=== PATIENT | male | born 2005 | race Caucasian/White ===

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

== ENCOUNTER 2024-11-17 18:43 | Emergency (ER) | payer OTHER, SELFPAY ==
[2024-11-17 18:48] VITALS: BP 133/85; PULSE 90; RESP 18; TEMP 36.7; O2SAT 98; BMI 17.7
[2024-11-17 19:18] LABS: Add Manual Diff / Slide Review NO; Basophils Absolute Auto 100 /uL (0-100); Basophils Percent Auto 1.2 % (0-2); Eosinophils Absolute Auto 0 /uL (0-450); Eosinophils Percent Auto 0.3 % (2-4); Hematocrit 49.3 % (41-53); Hemoglobin 16.7 g/dL (13.5-17.5); Lymphocytes Absolute Auto 900 /uL (1100-4500); Lymphocytes Percent Auto 18.5 % (25-40); Mean Corpuscular HGB Conc 33.9 % (30-36); Mean Corpuscular Hemoglobin 29.7 PG (26-34); Mean Corpuscular Volume 87.5 fL (80-100); Monocytes Absolute Auto 800 /uL (0-900); Monocytes Percent Auto 16.1 % (3-14); Neutrophils Absolute Auto 3000 /uL (1500-7000); Neutrophils Percent Auto 63.9 % (50-75); Platelet Count 203 X10^3/uL (150-400); Red Blood Cell Count 5.64 X10^6/uL (4.5-5.9); Red Cell Distribution Width 14.3 % (11.6-14.8); White Blood Cell Count 4.7 X10^3/uL (4.5-11.0)
[2024-11-17 19:22] LABS: Appearance Urine UA CLEAR; Bilirubin Urine UA 1+ (NEGATIVE); Glucose Urine UA NEGATIVE (Negative); Ketones Urine UA 3+ (NEGATIVE); Leukocyte Esterase Urine UA NEGATIVE (NEGATIVE); Nitrite Urine UA NEGATIVE (Negative); Occult Blood Urine UA NEGATIVE (Negative); Protein Urine UA TRACE (Negative); Specific Gravity Urine UA >=1.030 (1.000-1.035); Urobilinogen Urine UA 0.2 E.U./dL (0.2)
[2024-11-17 19:39] LABS: Bacteria Urine None Seen; Mucus Urine 1+ (Negative); RBC Urine None Seen (0-5/HPF); Squamous Epithelial Cell Urine 0-1 /HPF (0-5/HPF); Urine Volume 10mL (spun); WBC Urine None Seen (0-5/HPF)
[2024-11-17 19:39] LABS: Alanine Aminotransferase 32 IU/L (<50); Albumin 5.5 g/dL (3.5-5.0); Albumin Globulin Ratio 1.3 (1.0-2.8); Alkaline Phosphatase 107 U/L (38-126); Aspartate Aminotransferase 47 IU/L (17-59); BUN Creatinine Ratio 11.8 (6-22); Bilirubin Total 0.8 mg/dL (0.2-1.3); Blood Urea Nitrogen 12 mg/dL (9-20); Calcium 10.2 mg/dL (8.4-10.2); Carbon Dioxide 21 mmol/L (22-32); Chloride 101 mmol/L (98-107); Estimated Glomerular Filt Rate > 60 mL/min (>60); Globulin 4.1 g/dL (1.7-4.1); Glucose 80 mg/dL (70-100); HEMOLYSIS < 15 (0-50); Lipase 42 U/L (23-300); Potassium 3.6 mmol/L (3.4-5.1); Sodium 140 mmol/L (137-145); Total Protein 9.6 g/dL (6.3-8.2)
[2024-11-17 19:41] LABS: Color Urine UA Yellow; Ictotest Urine Negative (Negative)
[2024-11-17 21:53] VITALS: BP 141/80; PULSE 71; O2SAT 97
[2024-11-17 22:00] VITALS: PULSE 73; O2SAT 98
--- NOTE | 2024-11-17 22:01 | DI.CT.S_ITS ---
PROCEDURE: CT ABDOMEN PELVIS W CON INDICATIONS: pain TECHNIQUE: After the administration of intravenous contrast, axial sections acquired from the lung bases to the pubic symphysis. Coronal and sagittal reformats were performed. For radiation dose reduction, the following was used: automated exposure control, adjustment of mA and/or kV according to patient size. COMPARISON: None. FINDINGS: Image quality: Diagnostic. Lower Chest: No significant findings. ABDOMEN: Liver: No solid mass. Gallbladder: No wall thickening or calcified stones. Biliary ducts: No biliary dilation. Pancreas: Normal size and morphology without visible ductal dilatation or inflammation. Spleen: Size is within normal limits. Adrenal Glands: No adrenal nodules. Kidneys and Ureters: Symmetric enhancement. No nephrolithiasis or hydronephrosis. No visible mass or cyst requiring follow up. No hydroureter. Stomach and Bowel: Partially decompressed stomach. Several small bowel loops partially filled with fluid demonstrate mild mucosal hyperemia. No suspicious bowel wall thickening or luminal distention. The appendix was not seen. Normal colon without wall thickening. Peritoneum: No abnormal intraperitoneal fluid. No free air. Ventral Wall: No significant ventral hernia. Abdominal Nodes: No retroperitoneal or mesenteric adenopathy by size criteria. Vessels: The abdominal aorta, IVC, and portal vein are of normal caliber. PELVIS: Pelvic Organs: Unremarkable. Bladder: No bladder wall thickening, accounting for underdistention. Pelvic Nodes: No enlarged lymph nodes. Miscellaneous: No inguinal hernias are seen. Bones: No aggressive osseous abnormality. IMPRESSION: Mild small bowel mucosal hyperemia may indicate enteritis or gastroenteritis. No other abnormalities in the abdomen or pelvis. Dictated by: Johana Hamm M.D. on 11/18/2024 at 0:36 Approved by: Johana Hamm M.D. on 11/18/2024 at 0:41
--- NOTE | 2024-11-17 22:10 | ED_ITS ---
HPI - Abdominal Pain General Chief Complaint: Abdominal Pain Stated Complaint: Possible kidney infection or appendicitis Time Seen by Provider: 11/17/24 22:10 History of Present Illness HPI narrative: 19-year-old male without any significant past medical history presents to the emergency department from home for evaluation abdominal pain. He states that he has been having right lower quadrant abdominal pain intermittent in nature for the past 2 years, states that he is worsened over the past 2 days, states it is associated with some nausea but nothing making it specifically better or worse. He denies any other symptoms at this time. Related Data Home Medications Medication Instructions Recorded Confirmed No Known Home Medications 11/17/24 11/17/24 Allergies Allergy/AdvReac Type Severity Reaction Status Date / Time No Known Drug Allergies Allergy Verified 11/12/23 17:38 Review of Systems Review of Systems Narrative: General: Denies fever, chills, weight loss HEENT: Denies headache, eye drainage, eye irritation, head trauma, sore throat, voice change Cardiovascular: Denies any chest pain, palpitations, tachycardia Respiratory: Denies any shortness of breath, cough, wheeze, stridor GI/: Positive abdominal pain, nausea, denies vomiting, diarrhea, bright red blood per rectum, melanotic stools, urinary frequency, urinary retention, dysuria, hematuria MSK: Denies any joint pain, muscle pains, swelling Skin: Denies any rashes, lesions, discoloration Neuro: Denies any headache, lightheadedness, dizziness, fainting, weakness Psych: Denies SI/HI Patient History Social History Smoking Status: Current every day smoker Smoking Status: Current every day smoker tobacco type: cigarettes and vaping Exam Narrative Exam Narrative: General: Cooperative, well-developed, not in acute distress HEENT: Normocephalic, atraumatic, PERRLA, normal sclera, eyelids normal Neck: Active full range of motion, atraumatic Chest: Normal to inspection, negative crepitus, no overlying erythema ecchymosis Respiratory: Normal respiratory effort, not in acute respiratory distress, clear to auscultation bilaterally negative cough, wheeze, tachypnea, rhonchi, rales Cardiology: Regular rate rhythm negative gallop, murmur, rubs GI/: Mild tenderness to palpation lower abdomen right lower quadrant worse than left, soft, non rigid, normal to inspection, exam deferred MSK: Full active range of motion in all 4 extremities, atraumatic, no tenderness to palpation of any bony prominences Skin: No rashes or lesions noted Neuro: Alert awake oriented x3, moves all 4 extremities spontaneously, cranial nerves intact, able to answer all questions appropriately follows commands appropriately Psych: Cooperative, negative suicidal or homicidal ideations Initial Vital Signs Initial Vital Signs: Vital Signs Temperature 98.1 F 11/17/24 18:48 Pulse Rate 90 11/17/24 18:48 Respiratory Rate 18 11/17/24 18:48 Blood Pressure 133/85 11/17/24 18:48 Pulse Oximetry 98 11/17/24 18:48 Oxygen Delivery Method Room Air 11/17/24 18:48 Course Orders Ordered: ED Orders 11/17/24 19:00 Ictotest Urine Stat Urinalysis and Microscopic Stat 11/17/24 19:05 Complete Blood Count AUTO DIFF Stat Comprehensive Metabolic Panel Stat Lipase Stat 11/17/24 22:01 CT abdomen pelvis w con Stat Ondansetron HCl (Ondansetron 4 Mg/2 Ml Inj) 4 mg IV NOW PRN PRN Reason: Nausea And Vomiting Ondansetron HCl (Ondansetron 4 Mg Odt) 4 mg PO NOW PRN PRN Reason: Nausea And Vomiting Discontinued Medications Sodium Chloride (Normal Saline 0.9%) 1,000 mls @ 1,000 mls/hr IV BOLUS ONE Stop: 11/17/24 23:18 Last Infusion: 11/17/24 23:40 Dose: Infused Documented By: Admin: 11/17/24 22:49 Dose: 1,000 mls/hr Documented By: THAD Ketorolac Tromethamine (Ketorolac 30 Mg/Ml Vial) 30 mg IV NOW ONE Stop: 11/17/24 22:20 Last Admin: 11/17/24 22:49 Dose: 30 mg Documented By: THAD Ondansetron HCl (Ondansetron 4 Mg/2 Ml Inj) 4 mg IV NOW ONE Stop: 11/17/24 22:20 Last Admin: 11/17/24 22:49 Dose: 4 mg Documented By: THAD Vital Signs Vital signs: Vital Signs - 8 hr 11/17/24 18:48 11/17/24 21:53 11/17/24 21:53 Temperature 98.1 F Pulse Rate 90 71 Respiratory Rate 18 Blood Pressure 133/85 141/80 H Pulse Oximetry 98 97 Oxygen Delivery Method Room Air 11/17/24 22:00 11/17/24 22:30 11/17/24 23:00 Temperature Pulse Rate 73 71 81 Respiratory Rate Blood Pressure Pulse Oximetry 98 98 99 Oxygen Delivery Method 11/17/24 23:30 Temperature Pulse Rate 89 Respiratory Rate Blood Pressure Pulse Oximetry 99 Oxygen Delivery Method MDM - Abdominal Pain Differential Diagnosis Differential diagnosis: Likely abdominal pain, acute appendicitis and other (Urinary tract infection, electrolyte abnormality) Lab Data 11/17/24 19:05 11/17/24 19:05 Labs: Lab Results 11/17/24 11/17/24 Range/Units 19:00 19:05 WBC 4.7 (4.5-11.0) X10^3/uL RBC 5.64 (4.5-5.9) X10^6/uL Hgb 16.7 (13.5-17.5) g/dL Hct 49.3 (41-53) % MCV 87.5 (80-100) fL MCH 29.7 (26-34) PG MCHC 33.9 (30-36) % RDW 14.3 (11.6-14.8) % Plt Count 203 (150-400) X10^3/uL Neut % (Auto) 63.9 (50-75) % Lymph % (Auto) 18.5 L (25-40) % [place] % (Auto) 16.1 H (3-14) % Eos % (Auto) 0.3 L (2-4) % Baso % (Auto) 1.2 (0-2) % Neut # (Auto) 3000 (7986-8135) /uL Lymph # (Auto) 900 L (9809-7404) /uL [place] # (Auto) 800 (0-900) /uL Eos # (Auto) 0 (0-450) /uL Baso # (Auto) 100 (0-100) /uL Sodium 140 (137-145) mmol/L Potassium 3.6 (3.4-5.1) mmol/L Chloride 101 (98-107) mmol/L Carbon Dioxide 21 L (22-32) mmol/L BUN 12 (9-20) mg/dL Creatinine 1.02 (0.66-1.25) mg/dL Estimated GFR > 60 (>60) mL/min BUN/Creatinine Ratio 11.8 (6-22) Glucose 80 (70-100) mg/dL Calcium 10.2 (8.4-10.2) mg/dL Total Bilirubin 0.8 (0.2-1.3) mg/dL AST 47 (17-59) IU/L ALT 32 (<50) IU/L Alkaline Phosphatase 107 (38-126) U/L Total Protein 9.6 H (6.3-8.2) g/dL Albumin 5.5 H (3.5-5.0) g/dL Globulin 4.1 (1.7-4.1) g/dL Albumin/Globulin Ratio 1.3 (1.0-2.8) Lipase 42 (23-300) U/L Urine Color Yellow Urine Appearance Clear Urine pH 6.0 (4.5-8.0) Ur Specific [place] >=1.030 H (1.000-1.035) Urine Protein Trace H (Negative) Urine Glucose (UA) Negative (Negative) g/dL Urine Ketones 3+ H (NEGATIVE) Urine Occult Blood Negative (Negative) Urine Nitrate Negative (Negative) Urine Bilirubin 1+ H (NEGATIVE) Ur Bilirubin Confirm Negative (Negative) Urine Urobilinogen 0.2 (0.2) E.U./dL Ur Leukocyte Esterase Negative (NEGATIVE) Urine RBC None seen (0-5/HPF) Urine WBC None seen (0-5/HPF) Ur Squamous Epith Cells 0-1 /hpf (0-5/HPF) Urine Bacteria None seen (None) Urine Mucus 1+ H (Negative) Vol Urine Centrifuged 10ml (spun) Point of care testing: Urine Dip Bedside Urine Glucose Negative Bedside Urine Bilirubin - Negative Bedside Urine Ketone +++ 80 Urine Specific [place] 1.025 Bedside Urine Occult Blood - Negative Bedside Urine pH 6.0 Bedside Urine Protein + 30 Bedside Urine Urobilinogen - Negative Bedside Urine Nitrite - Negative Bedside Urine Leukocytes - Negative Esterase Imaging Data CT scan - abdomen/pelvis: Radiologist's Impression: [address] [address] [address] Scan Report Signed Patient: Anthony Salmon MR#: [id number] : 2005 Acct:[id number] Age/Sex: 19 / M Date of Service: 11/17/24 Loc: ED Accession Number: [id number] Procedure: CT abdomen pelvis w con Ordering Provider: Sonny Jackson D.O. PROCEDURE: CT ABDOMEN PELVIS W CON INDICATIONS: pain TECHNIQUE: After the administration of intravenous contrast, axial sections acquired from the lung bases to the pubic symphysis. Coronal and sagittal reformats were performed. For radiation dose reduction, the following was used: automated exposure control, adjustment of mA and/or kV according to patient size. COMPARISON: None. FINDINGS: Image quality: Diagnostic. Lower Chest: No significant findings. ABDOMEN: Liver: No solid mass. Gallbladder: No wall thickening or calcified stones. Biliary ducts: No biliary dilation. Pancreas: Normal size and morphology without visible ductal dilatation or inflammation. Spleen: Size is within normal limits. Adrenal Glands: No adrenal nodules. Kidneys and Ureters: Symmetric enhancement. No nephrolithiasis or hydronephrosis. No visible mass or cyst requiring follow up. No hydroureter. Stomach and Bowel: Partially decompressed stomach. Several small bowel loops partially filled with fluid demonstrate mild mucosal hyperemia. No suspicious bowel wall thickening or luminal distention. The appendix was not seen. Normal colon without wall thickening. Peritoneum: No abnormal intraperitoneal fluid. No free air. Ventral Wall: No significant ventral hernia. Abdominal Nodes: No retroperitoneal or mesenteric adenopathy by size criteria. Vessels: The abdominal aorta, IVC, and portal vein are of normal caliber. PELVIS: Pelvic Organs: Unremarkable. Bladder: No bladder wall thickening, accounting for underdistention. Pelvic Nodes: No enlarged lymph nodes. Miscellaneous: No inguinal hernias are seen. Bones: No aggressive osseous abnormality. IMPRESSION: Mild small bowel mucosal hyperemia may indicate enteritis or gastroenteritis. No other abnormalities in the abdomen or pelvis. MDM Narrative Medical decision making narrative: 19-year-old male without any significant past medical history presenting for right lower quadrant abdominal pain, states it has been ongoing intermittent for the past 2 years however worsening over the past 2 days does associated with some nausea but nothing making it better or worse. Patient had urinalysis performed here without any acute signs of urine infection, lab work unremarkable, did obtain CT scan of his abdomen/pelvis which showed enteritis/gastroenteritis otherwise no other acute findings. Patient was instructed to follow up with primary care and Gastroenterology in outpatient setting he verbalized understanding of this and agrees to being discharged home with outpatient follow up. Discharge Plan Departure Patient Disposition: Home Clinical Impression: Enteritis Instructions: DI for Viral Gastroenteritis -- Adult Activity Restrictions/Additional Instructions: Please follow up with Gastroenterology and primary care in outpatient setting Please read the discharge instructions sheet carefully and bring all papers to all doctor follow-up visits, as it may contain information that your doctor may want to see. Disease processes change and evolve, if your symptoms worsen or if you develop any new symptoms that are concerning to you please return for evaluation. Your evaluation today does not show any evidence of any life- threatening/serious illnesses requiring admission to the hospital or surgery. Please follow-up with your doctor for re-evaluation in approximately 1 day. Seek immediate medical attention for any worrisome symptoms. *If you do not have a primary care provider please contact the [facility] Resource line at [phone]. They will ask some questions about your medical history and help get you set up with a doctor in the community. Prescriptions: No Action No Known Home Medications Referrals: Lakhwinder Cabezas MD [Non-Staff] - Miscellaneous,MD Oj [Primary Care Provider] - Stand Alone Forms: Patient Portal/API/Survey
[2024-11-17 22:30] VITALS: PULSE 71; O2SAT 98
[2024-11-17] MEDS: KETOROLAC 30 MG/ML VIAL IV (22:49)
[2024-11-17] MEDS: ONDANSETRON 4 MG/2 ML INJ IV (22:49)
[2024-11-17] MEDS: SODIUM CHLORIDE 0.9% 1,000 ML 1000 ML IV (22:49)
[2024-11-17 23:00] VITALS: PULSE 81; O2SAT 99
[2024-11-17 23:30] VITALS: PULSE 89; O2SAT 99
[2024-11-18] VITALS: PULSE 77; O2SAT 97
[2024-11-18 00:30] VITALS: PULSE 75; O2SAT 98
[2024-11-18 01:00] VITALS: PULSE 78; O2SAT 98
[2024-11-18 01:02] VITALS: BP 108/73; PULSE 71; O2SAT 99
== END 2024-11-18 01:10 | disposition home or self-care (01) ==
PROVIDERS: Emergency Provider Student in an Organized Health Care Education/Training Program
DX: K52.9 Noninfective gastroenteritis and colitis, unspecified (principal)
CPT/HCPCS: 74177; 80053; 81001; 81003; 83690; 85025; 96361; 96374; 96375; 99283; 99284; J1885; J2405; Q9967

== ENCOUNTER 2025-03-08 19:37 | Emergency (ER) | payer OTHER, SELFPAY ==
[2025-03-08 20:26] VITALS: BP 135/73; PULSE 99; RESP 15; TEMP 37.1; O2SAT 99; BMI 19.2
[2025-03-08] MEDS: KETOROLAC 30 MG/ML VIAL 15 MG IV (21:03)
[2025-03-08] MEDS: cefTRIAXone 2,000 MG in SODIUM CHLORIDE 0.9% 100 ML 200 MG IV (21:04)
[2025-03-08 21:07] LABS: Add Manual Diff / Slide Review NO; Hematocrit 45.6 % (41-53); Hemoglobin 15.3 g/dL (13.5-17.5); Lymphocytes Absolute Auto 2200 /uL (1100-4500); Mean Corpuscular HGB Conc 33.4 % (30-36); Mean Corpuscular Hemoglobin 29.3 PG (26-34); Mean Corpuscular Volume 87.6 fL (80-100); Platelet Count 286 X10^3/uL (150-400)
[2025-03-08] MEDS: OXYCODONE/ACETAMINOPHEN 5/325 TABLET 1 TAB PO (21:11)
[2025-03-08 21:13] LABS: Alanine Aminotransferase 17 IU/L (<50); Albumin 5.3 g/dL (3.5-5.0); Albumin Globulin Ratio 1.5 (1.0-2.8); Alkaline Phosphatase 84 U/L (38-126); Blood Urea Nitrogen 10 mg/dL (9-20); Calcium 9.9 mg/dL (8.4-10.2); Carbon Dioxide 25 mmol/L (22-32); Chloride 100 mmol/L (98-107); Estimated Glomerular Filt Rate > 60 mL/min (>60); Globulin 3.6 g/dL (1.7-4.1); Glucose 93 mg/dL (70-99); HEMOLYSIS 19 (0-50); Potassium 3.7 mmol/L (3.4-5.1); Sodium 139 mmol/L (137-145); Total Protein 8.9 g/dL (6.3-8.2)
[2025-03-08 21:30] VITALS: BP 124/70; PULSE 89; RESP 16; O2SAT 98
[2025-03-08 22:00] VITALS: BP 121/79; PULSE 77; RESP 16; O2SAT 98
--- NOTE | 2025-03-08 22:29 | ED.ANIMALBIT ---
HPI - Animal Bite General Chief Complaint: Animal Bite Stated Complaint: animal bite-dog, swollen and [id number] Time Seen by Provider: 03/08/25 20:42 Source: patient Mode of arrival: Ambulatory History of Present Illness HPI narrative: Otherwise healthy 19-year-old young man who was bit by his dog left thenar eminence approximately 24 hours ago. Noticing increasing redness swelling and over the last couple of hours is having some lymphangitic streaking. No fevers or chills no nausea or vomiting. The dog is known to him. Related Data Previous Rx's ?Medication ?Instructions ?Recorded amoxicillin 875 mg-potassium 1 tab PO BID #20 tabs 03/08/25 clavulanate 125 mg tablet Allergies Allergy/AdvReac Type Severity Reaction Status Date / Time No Known Drug Allergies Allergy Verified 03/08/25 20:23 Review of Systems Review of Systems Narrative: Pertinent positive and negative findings as per HPI Patient History tobacco type: cigarettes and vaping Exam Initial Vital Signs Initial Vital Signs: Vital Signs Temperature 98.8 F 03/08/25 20:26 Pulse Rate 99 H 03/08/25 20:26 Respiratory Rate 15 03/08/25 20:26 Blood Pressure 135/73 03/08/25 20:26 Pulse Oximetry 99 03/08/25 20:26 Oxygen Delivery Method Room Air 03/08/25 20:26 General: Alert appropriate in no acute distress Respiratory: Able to speak in full sentences, no obvious respiratory distress Skin: No obvious rashes, warm and dry Neurologic: Grossly intact no obvious asymmetries or abnormalities Psych: appropriate insight and affect, cooperative Extremity: Wound at the base of the thumb on the left side with swelling to the thenar eminence and lymphangitic streaking up the ventral surface of the forearm with some mild axillary adenopathy on left side. No obvious draining, fluctuance or organized abscess. Neurovascularly intact in the fingers. Course Orders Ordered: ED Orders 03/08/25 20:53 CBC Auto Diff [Complete Blood Count AUTO DIFF] Stat CMP [Comprehensive Metabolic Panel] Stat Discontinued Medications Ceftriaxone Sodium 2,000 mg/ (Sodium Chloride) 100 mls @ 200 mls/hr IV NOW ONE Stop: 03/08/25 20:57 Last Infusion: 03/08/25 21:38 Dose: Infused Documented By: Admin: 03/08/25 21:04 Dose: 200 mls/hr Documented By: ADITI Ketorolac Tromethamine (Ketorolac 30 Mg/Ml Vial) 15 mg IV NOW ONE Stop: 03/08/25 20:57 Last Admin: 03/08/25 21:03 Dose: 15 mg Documented By: ADITI Oxycodone/Acetaminophen (Oxycodone/Acetaminophen 5/325 Tablet) 1 tab PO NOW ONE Stop: 03/08/25 20:57 Last Admin: 03/08/25 21:11 Dose: 1 tab Documented By: ADITI Vital Signs Vital signs: Vital Signs - 8 hr 03/08/25 20:26 Temperature 98.8 F Pulse Rate 99 H Respiratory Rate 15 Blood Pressure 135/73 Pulse Oximetry 99 Oxygen Delivery Method Room Air MDM - Animal Bite Lab Data 03/08/25 20:53 03/08/25 20:53 Labs: Lab Results 03/08/25 Range/Units 20:53 WBC 18.1 H (4.5-11.0) X10^3/uL RBC 5.21 (4.5-5.9) X10^6/uL Hgb 15.3 (13.5-17.5) g/dL Hct 45.6 (41-53) % MCV 87.6 (80-100) fL MCH 29.3 (26-34) PG MCHC 33.4 (30-36) % RDW 13.5 (11.6-14.8) % Plt Count 286 (150-400) X10^3/uL Neut % (Auto) 82.0 H (50-75) % Lymph % (Auto) 12.3 L (25-40) % [place] % (Auto) 5.1 (3-14) % Eos % (Auto) 0.2 L (2-4) % Baso % (Auto) 0.4 (0-2) % Neut # (Auto) 96634 H (8880-7441) /uL Lymph # (Auto) 2200 (0065-1392) /uL [place] # (Auto) 900 (0-900) /uL Eos # (Auto) 0 (0-450) /uL Baso # (Auto) 100 (0-100) /uL Sodium 139 (137-145) mmol/L Potassium 3.7 (3.4-5.1) mmol/L Chloride 100 (98-107) mmol/L Carbon Dioxide 25 (22-32) mmol/L BUN 10 (9-20) mg/dL Creatinine 0.98 (0.66-1.25) mg/dL Estimated GFR > 60 (>60) mL/min BUN/Creatinine Ratio 10.2 (6-22) Glucose 93 (70-99) mg/dL Calcium 9.9 (8.4-10.2) mg/dL Total Bilirubin 0.8 (0.2-1.3) mg/dL AST 28 (17-59) IU/L ALT 17 (<50) IU/L Alkaline Phosphatase 84 (38-126) U/L Total Protein 8.9 H (6.3-8.2) g/dL Albumin 5.3 H (3.5-5.0) g/dL Globulin 3.6 (1.7-4.1) g/dL Albumin/Globulin Ratio 1.5 (1.0-2.8) MDM Narrative Medical decision making narrative: 19-year-old gentleman bit by a dog left thenar eminence almost 24 hours ago. Increasing swelling and redness and prior to arrival in the Emergency departed noted some lymphangitic streaking. He is not having systemic fevers or body aches. He is able to eat and drink. He has never had similar symptoms. Lab work shows significant leukocytosis at 18,000 with normal chemistries He is given 2 g of IV ceftriaxone along with Toradol in the emergency department. Pain is better controlled and the lymphangitic streaking is already notably improved Discussed the importance of completing complete course of Augmentin, reasons to return, at this point he does not have an abscess does not need to be surgically drained and is safe for discharge home. Discharge Plan Departure Patient Disposition: Home Clinical Impression: Dog bite, Cellulitis Instructions: DI for Dog Bite Activity Restrictions/Additional Instructions: Thank you for coming in today You definitely have an infection from the dog bite, you were given IV antibiotics and need to complete 10 additional days of oral antibiotics, Augmentin. Prescription for this is sent to [facility] in [place]. Using 400 mg of ibuprofen (2 [id number] pills) and 1 Tylenol every 6 hours can be very helpful in controlling pain. For severe pain you can use 400 mg of ibuprofen and 1 Percocet. Keeping your hand elevated above the level of your heart we will help if you are having any throbbing pain. The streaking up your arm is already improving after the dose of IV antibiotics and I find this very encouraging. The pain should continue to improve over the next number of days. If you find that you are getting worse or develop any new symptoms, please feel free to return to the emergency department for further evaluation. Prescriptions: New amoxicillin-pot clavulanate 875-125 mg tablet 1 tab PO BID Qty: 20 0RF Referrals: Miscellaneous,Doctor, [Primary Care Provider, Medical] Stand Alone Forms: Patient Portal/API
[2025-03-08 22:30] VITALS: BP 110/61; PULSE 75; RESP 16; O2SAT 97
[2025-03-08 23:00] VITALS: BP 115/65; PULSE 74; RESP 14; O2SAT 98
[2025-03-08 23:30] VITALS: BP 121/78; PULSE 74; RESP 16; O2SAT 99
[2025-03-09] MEDS: OXYCODONE/ACETAMINOPHEN 5/325 TABLET 1 TAB PO
== END 2025-03-09 00:10 | disposition home or self-care (01) ==
PROVIDERS: Emergency Provider Emergency Medicine
DX: L03.114 Cellulitis of left upper limb (principal); W54.0XXA Bitten by dog, initial encounter
CPT/HCPCS: 36415; 80053; 85025; 96365; 96375; 99284; J0696; J1885

== ENCOUNTER 2025-03-18 18:41 | Emergency (ER) | payer OTHER, SELFPAY ==
[2025-03-18 18:52] VITALS: BP 122/68; PULSE 91; RESP 17; TEMP 36.8; O2SAT 97; BMI 19.8
[2025-03-18 21:03] LABS: Add Manual Diff / Slide Review NO; Hematocrit 43.9 % (41-53); Hemoglobin 15.0 g/dL (13.5-17.5); Lymphocytes Absolute Auto 3100 /uL (1100-4500); Mean Corpuscular HGB Conc 34.2 % (30-36); Mean Corpuscular Hemoglobin 29.8 PG (26-34); Mean Corpuscular Volume 87.1 fL (80-100); Platelet Count 310 X10^3/uL (150-400)
[2025-03-18 21:25] LABS: Lactate (Lactic Acid) 1.4 mmol/L (0.7-2.1)
[2025-03-18 21:27] LABS: Alanine Aminotransferase 15 IU/L (<50); Albumin 5.3 g/dL (3.5-5.0); Albumin Globulin Ratio 1.5 (1.0-2.8); Alkaline Phosphatase 72 U/L (38-126); Blood Urea Nitrogen 14 mg/dL (9-20); Calcium 9.6 mg/dL (8.4-10.2); Carbon Dioxide 25 mmol/L (22-32); Chloride 102 mmol/L (98-107); Estimated Glomerular Filt Rate > 60 mL/min (>60); Globulin 3.5 g/dL (1.7-4.1); Glucose 87 mg/dL (70-99); HEMOLYSIS 16 (0-50); Potassium 4.0 mmol/L (3.4-5.1); Sodium 139 mmol/L (137-145); Total Protein 8.8 g/dL (6.3-8.2)
[2025-03-18 21:40] LABS: Procalcitonin < 0.030 ng/mL (<0.5)
--- NOTE | 2025-03-18 22:15 | PC.NURSE ---
pt states his hand was almost completely healed when his dog hit it with his paw and then it became red and swollen again. base of left thumb is red and swollen with streaking noted, no drainage at present
--- NOTE | 2025-03-18 22:46 | ED.WOUNDLAC ---
HPI - Wound/Laceration General Chief Complaint: Wound/Laceration Stated Complaint: dog bite Time Seen by Provider: 03/18/25 20:01 Source: patient Mode of arrival: Ambulatory History of Present Illness HPI narrative: 19-year-old gentleman seen initially on 03/08 for cellulitis dog bite for which he was discharged on Augmentin finishes last dose today and had bumped into his dog separate from the original dog bite and the swelling at the original dog bite site became more red and painful with mild streaking up the left upper extremity. In fact patient said it swelled up to the size of an apple and had the streaking up the arm initially on the initial dog bite as well but subsided with the antibiotics. He denies any fever chills any restriction in motion of the arm wrist shoulder elbow hand fingers. He has been compliant in taking his antibiotics. Other than what is stated 14 point review of system is negative. Related Data Previous Rx's ?Medication ?Instructions ?Recorded amoxicillin 875 mg-potassium 1 tab PO BID #20 tabs 03/08/25 clavulanate 125 mg tablet amoxicillin 875 mg-potassium 1 tab PO Q12H #20 tabs 03/18/25 clavulanate 125 mg tablet Allergies Allergy/AdvReac Type Severity Reaction Status Date / Time No Known Drug Allergies Allergy Verified 03/18/25 18:54 Review of Systems Review of Systems ROS Unobtainable: All systems reviewed & are unremarkable except as noted in HPI and below Patient History tobacco type: cigarettes and vaping Exam Narrative Exam Narrative: GENERAL: [19] year old patient appears stated age. Well-developed patient, in mild distress. HEAD: Atraumatic. Normocephalic. EYES: Pupils equal round and reactive. Extraocular motions intact. No scleral icterus. No injection or drainage. NECK: Trachea midline. Non tender EXTREMITIES: No edema or joint tenderness. BACK: Nontender without deformity or crepitance. No flank tenderness. NEURO: AOx3. SKIN: Wound at the base of the thumb on the left side with swelling to the thenar eminence and lymphangitic streaking up the ventral surface of the forearm. No obvious draining, fluctuance or organized abscess. Neurovascularly intact in the fingers. Initial Vital Signs Initial Vital Signs: Vital Signs Temperature 98.2 F 03/18/25 18:52 Pulse Rate 91 H 03/18/25 18:52 Respiratory Rate 17 03/18/25 18:52 Blood Pressure 122/68 03/18/25 18:52 Pulse Oximetry 97 03/18/25 18:52 Oxygen Delivery Method Room Air 03/18/25 18:52 Course Orders Ordered: ED Orders 03/18/25 20:49 Blood Culture Stat CBC Auto Diff [Complete Blood Count AUTO DIFF] Stat CMP [Comprehensive Metabolic Panel] Stat CRP [C-Reactive Protein Quant] Stat ESR [Erythrocyte Sedimentation Rate] Stat Lactate (Lactic Acid) Stat Procalcitonin Stat Vital Signs Vital signs: Vital Signs - 8 hr 03/18/25 18:52 Temperature 98.2 F Pulse Rate 91 H Respiratory Rate 17 Blood Pressure 122/68 Pulse Oximetry 97 Oxygen Delivery Method Room Air MDM - Wound/Laceration Lab Data 03/18/25 20:49 03/18/25 20:49 Labs: Lab Results 03/18/25 Range/Units 20:49 WBC 13.5 H (4.5-11.0) X10^3/uL RBC 5.04 (4.5-5.9) X10^6/uL Hgb 15.0 (13.5-17.5) g/dL Hct 43.9 (41-53) % MCV 87.1 (80-100) fL MCH 29.8 (26-34) PG MCHC 34.2 (30-36) % RDW 13.5 (11.6-14.8) % Plt Count 310 (150-400) X10^3/uL Neut % (Auto) 68.6 (50-75) % Lymph % (Auto) 22.7 L (25-40) % [place] % (Auto) 6.9 (3-14) % Eos % (Auto) 0.9 L (2-4) % Baso % (Auto) 0.9 (0-2) % Neut # (Auto) 9200 H (3244-7675) /uL Lymph # (Auto) 3100 (7022-1230) /uL [place] # (Auto) 900 (0-900) /uL Eos # (Auto) 100 (0-450) /uL Baso # (Auto) 100 (0-100) /uL ESR 4 (0-15) MM/HR Sodium 139 (137-145) mmol/L Potassium 4.0 (3.4-5.1) mmol/L Chloride 102 (98-107) mmol/L Carbon Dioxide 25 (22-32) mmol/L BUN 14 (9-20) mg/dL Creatinine 1.14 (0.66-1.25) mg/dL Estimated GFR > 60 (>60) mL/min BUN/Creatinine Ratio 12.3 (6-22) Glucose 87 (70-99) mg/dL Lactate 1.4 (0.7-2.1) mmol/L Calcium 9.6 (8.4-10.2) mg/dL Total Bilirubin 0.6 (0.2-1.3) mg/dL AST 28 (17-59) IU/L ALT 15 (<50) IU/L Alkaline Phosphatase 72 (38-126) U/L C-Reactive Protein < 0.5 (<1.0) mg/dL Total Protein 8.8 H (6.3-8.2) g/dL Albumin 5.3 H (3.5-5.0) g/dL Globulin 3.5 (1.7-4.1) g/dL Albumin/Globulin Ratio 1.5 (1.0-2.8) Procalcitonin < 0.030 (<0.5) ng/mL MDM Narrative Medical decision making narrative: Vital signs, nurse triage note, medication list, previous ER visits, and all imaging studies reviewed. Patient given Rocephin 2 g IV, Toradol, hydrocodone, lactated ringer 1 L bolus. Patient will be discharged on cephalexin and Augmentin and to return with new or worsening. Differential diagnosis cellulitis, abscess, dog Bite, tetanus, rabies. Discharge Plan Departure Patient Disposition: Home Clinical Impression: Dog bite Qualifiers: Encounter type: initial encounter Qualified Code(s): W54.0XXA - Bitten by dog, initial encounter Instructions: DI for Dog Bite Activity Restrictions/Additional Instructions: Return with new or worsening symptoms. Take your medicine as directed. Follow up with PCP 1-2 weeks if no improvement in symptoms. Prescriptions: New amoxicillin-pot clavulanate 875-125 mg tablet 1 tab PO Q12H Qty: 20 0RF No Action amoxicillin-pot clavulanate 875-125 mg tablet 1 tab PO BID Qty: 20 0RF Referrals: Miscellaneous,Doctor [Primary Care Provider, Medical] Stand Alone Forms: Patient Portal/API
[2025-03-18] MEDS: HYDROCODONE/ACET 5/325 TABLET 1 TAB PO (23:01)
[2025-03-18] MEDS: KETOROLAC 30 MG/ML VIAL 15 MG IV (23:01)
[2025-03-18] MEDS: cefTRIAXone 2,000 MG in SODIUM CHLORIDE 0.9% 100 ML 200 MG IV (23:01)
[2025-03-18 23:38] VITALS: BP 120/64; PULSE 88; RESP 16; O2SAT 100
== END 2025-03-18 23:39 | disposition home or self-care (01) ==
PROVIDERS: Emergency Provider Family Medicine
DX: S41.152D Open bite of left upper arm, subsequent encounter (principal); W54.0XXD Bitten by dog, subsequent encounter
CPT/HCPCS: 36415; 80053; 83605; 84145; 85025; 85651; 86140; 87040; 96365; 96375; 99284; J0696; J1885

== ENCOUNTER 2025-07-12 15:25 | Emergency (ER) | payer OTHER, SELFPAY ==
[2025-07-12] VITALS (9 sets, daily range): BP systolic 118–136; BP diastolic 65–84; PULSE 52–89; RESP 14–23; TEMP 36.9; O2SAT 95–100; BMI 16.9
[2025-07-12] MEDS: PANTOPRAZOLE 40 MG VIAL IV (15:45)
[2025-07-12] MEDS: SODIUM CHLORIDE 0.9% 1,000 ML 1000 ML IV ×3 (15:45→18:02)
[2025-07-12] MEDS: ONDANSETRON 4 MG/2 ML INJ IV ×2 (15:45→16:55)
[2025-07-12 15:55] LABS: Add Manual Diff / Slide Review NO; Hematocrit 50.2 % (41-53); Hemoglobin 17.4 g/dL (13.5-17.5); Lymphocytes Absolute Auto 1000 /uL (1100-4500); Mean Corpuscular HGB Conc 34.6 % (30-36); Mean Corpuscular Hemoglobin 29.6 PG (26-34); Mean Corpuscular Volume 85.6 fL (80-100); Platelet Count 291 X10^3/uL (150-400)
[2025-07-12 16:14] LABS: Lactate (Lactic Acid) 1.6 mmol/L (0.7-2.1)
[2025-07-12 16:15] LABS: Alanine Aminotransferase 19 IU/L (<50); Albumin 5.7 g/dL (3.5-5.0); Albumin Globulin Ratio 1.5 (1.0-2.8); Alkaline Phosphatase 63 U/L (38-126); Blood Urea Nitrogen 16 mg/dL (9-20); Calcium 9.9 mg/dL (8.4-10.2); Carbon Dioxide 24 mmol/L (22-32); Chloride 98 mmol/L (98-107); Estimated Glomerular Filt Rate > 60 mL/min (>60); Globulin 3.9 g/dL (1.7-4.1); Glucose 107 mg/dL (70-99); Lipase 38 U/L (23-300); Potassium 3.7 mmol/L (3.4-5.1); Sodium 138 mmol/L (137-145); Total Protein 9.6 g/dL (6.3-8.2)
[2025-07-12 16:16] LABS: HEMOLYSIS 59 (0-50)
--- NOTE | 2025-07-12 16:21 | ED.ABDPAIN ---
HPI - Abdominal Pain <Batsheva Collins DO - Last Filed: 07/13/25 07:05> General Chief Complaint: Abdominal Pain Stated Complaint: N/V X 1 week Time Seen by Provider: 07/12/25 15:30 Source: patient Mode of arrival: Ambulatory History of Present Illness HPI narrative: Patient is a healthy 20-year-old male presenting today with 1 week of nausea vomiting abdominal pain. He has been unable to keep anything down he maybe had a episode of diarrhea prior level she has been vomiting. He feels dizzy lightheaded he has pretty severe epigastric pain. No one else is really sick at home. He does admit to smoking marijuana daily but has never had hyperemesis cannabis syndrome before. Related Data Previous Rx's ?Medication ?Instructions ?Recorded ondansetron 4 mg disintegrating 4 mg PO Q6H PRN nausea and 07/12/25 tablet vomiting #7 tabs Allergies Allergy/AdvReac Type Severity Reaction Status Date / Time No Known Drug Allergies Allergy Verified 07/12/25 15:30 Patient History <Batsheva Collins DO - Last Filed: 07/13/25 07:05> Social History Smoking Status: Former smoker Smoking Status: Former smoker tobacco type: cigarettes and vaping Exam <Batsheva Collins DO - Last Filed: 07/13/25 07:05> Initial Vital Signs Initial Vital Signs: Vital Signs Temperature 98.4 F 07/12/25 15:31 Pulse Rate 67 07/12/25 15:31 Respiratory Rate 14 07/12/25 15:31 Blood Pressure 136/84 07/12/25 15:31 Pulse Oximetry 100 07/12/25 15:31 Oxygen Delivery Method Room Air 07/12/25 15:31 GENERAL: Alert thin 20-year-old male and in no acute distress. HEENT: Head atraumatic,EOMI, pupils reactive, face symmetric, dry mucous membranes CARDIOVASCULAR: Regular rate and rhythm without murmurs, rubs or gallops. RESPIRATORY: Breath sounds equal bilaterally, no wheezes rales or rhonchi. ABDOMEN: Soft, tender epigastric region no guarding no rebound : No CVA tenderness EXTREMITIES: Normal range of motion, no clubbing or edema. Neurovascularly intact NEUROLOGICAL: Alert and oriented x4.Normal gait and speech. Cranial nerves II through XII grossly intact. SKIN: Warm, dry, no laceration, no petechiae, no rashes or lesions. <Salazar Dexter MD - Last Filed: 07/13/25 00:34> Initial Vital Signs Initial Vital Signs: Vital Signs Temperature 98.4 F 07/12/25 15:31 Pulse Rate 67 07/12/25 15:31 Respiratory Rate 14 07/12/25 15:31 Blood Pressure 136/84 07/12/25 15:31 Pulse Oximetry 100 07/12/25 15:31 Oxygen Delivery Method Room Air 07/12/25 15:31 Course <Batsheva Collins DO - Last Filed: 07/13/25 07:05> Orders Ordered: Discontinued Medications Sodium Chloride (Normal Saline 0.9%) 1,000 mls @ 1,000 mls/hr IV BOLUS ONE Stop: 07/12/25 16:33 Last Infusion: 07/12/25 17:17 Dose: Infused Documented By: [facility] Admin: 07/12/25 15:45 Dose: 1,000 mls/hr Documented By: AB Sodium Chloride (Normal Saline 0.9%) 1,000 mls @ 1,000 mls/hr IV BOLUS ONE Stop: 07/12/25 16:33 Last Infusion: 07/12/25 17:17 Dose: Infused Documented By: [facility] Admin: 07/12/25 15:45 Dose: 1,000 mls/hr Documented By: AB Sodium Chloride (Normal Saline 0.9%) 1,000 mls @ 1,000 mls/hr IV BOLUS ONE Stop: 07/12/25 18:49 Last Infusion: 07/12/25 18:46 Dose: Infused Documented By: C Admin: 07/12/25 18:02 Dose: 1,000 mls/hr Documented By: LAWRENCE Ketorolac Tromethamine (Ketorolac 30 Mg/Ml Vial) 15 mg IV NOW ONE Stop: 07/12/25 17:18 Last Admin: 07/12/25 17:24 Dose: 15 mg Documented By: RLPatricia Ondansetron HCl (Ondansetron 4 Mg/2 Ml Inj) 4 mg IV NOW ONE Stop: 07/12/25 15:35 Last Admin: 07/12/25 15:45 Dose: 4 mg Documented By: Ondansetron HCl (Ondansetron 4 Mg/2 Ml Inj) 4 mg IV NOW ONE Stop: 07/12/25 16:48 Last Admin: 07/12/25 16:55 Dose: 4 mg Documented By: THAD Ondansetron HCl (Ondansetron 4 Mg Odt Prepack) 1 bottle MISC DIRECTED ONE Stop: 07/12/25 19:12 Last Admin: 07/12/25 19:21 Dose: 1 bottle Documented By: THAD Pantoprazole Sodium (Pantoprazole 40 Mg Vial) 40 mg IV NOW ONE Stop: 07/12/25 15:35 Last Admin: 07/12/25 15:45 Dose: 40 mg Documented By: Vital Signs Vital signs: Vital Signs - 8 hr 07/12/25 16:30 07/12/25 16:30 07/12/25 17:00 Pulse Rate 52 L Respiratory Rate 22 Blood Pressure 136/83 131/84 Pulse Oximetry 100 07/12/25 17:00 07/12/25 17:30 07/12/25 17:30 Pulse Rate 59 L 77 Respiratory Rate 18 16 Blood Pressure 129/80 Pulse Oximetry 100 100 07/12/25 18:01 07/12/25 18:01 07/12/25 18:30 Pulse Rate 73 89 Respiratory Rate 15 19 Blood Pressure 131/78 Pulse Oximetry 99 100 07/12/25 18:30 07/12/25 19:02 07/12/25 19:21 Pulse Rate 87 Respiratory Rate Blood Pressure 130/73 118/65 Pulse Oximetry 95 07/12/25 19:21 Pulse Rate 83 Respiratory Rate 16 Blood Pressure Pulse Oximetry 98 <Salazar Dexter MD - Last Filed: 07/13/25 00:34> Orders Ordered: Discontinued Medications Sodium Chloride (Normal Saline 0.9%) 1,000 mls @ 1,000 mls/hr IV BOLUS ONE Stop: 07/12/25 16:33 Last Infusion: 07/12/25 17:17 Dose: Infused Documented By: Admin: 07/12/25 15:45 Dose: 1,000 mls/hr Documented By: Sodium Chloride (Normal Saline 0.9%) 1,000 mls @ 1,000 mls/hr IV BOLUS ONE Stop: 07/12/25 16:33 Last Infusion: 07/12/25 17:17 Dose: Infused Documented By: Admin: 07/12/25 15:45 Dose: 1,000 mls/hr Documented By: AB Sodium Chloride (Normal Saline 0.9%) 1,000 mls @ 1,000 mls/hr IV BOLUS ONE Stop: 07/12/25 18:49 Last Infusion: 07/12/25 18:46 Dose: Infused Documented By: Admin: 07/12/25 18:02 Dose: 1,000 mls/hr Documented By: ES Ketorolac Tromethamine (Ketorolac 30 Mg/Ml Vial) 15 mg IV NOW ONE Stop: 07/12/25 17:18 Last Admin: 07/12/25 17:24 Dose: 15 mg Documented By: THAD Ondansetron HCl (Ondansetron 4 Mg/2 Ml Inj) 4 mg IV NOW ONE Stop: 07/12/25 15:35 Last Admin: 07/12/25 15:45 Dose: 4 mg Documented By: AB Ondansetron HCl (Ondansetron 4 Mg/2 Ml Inj) 4 mg IV NOW ONE Stop: 07/12/25 16:48 Last Admin: 07/12/25 16:55 Dose: 4 mg Documented By: THAD Ondansetron HCl (Ondansetron 4 Mg Odt Prepack) 1 bottle MISC DIRECTED ONE Stop: 07/12/25 19:12 Last Admin: 07/12/25 19:21 Dose: 1 bottle Documented By: THAD Pantoprazole Sodium (Pantoprazole 40 Mg Vial) 40 mg IV NOW ONE Stop: 07/12/25 15:35 Last Admin: 07/12/25 15:45 Dose: 40 mg Documented By: AB Vital Signs Vital signs: Vital Signs - 8 hr 07/12/25 16:30 07/12/25 16:30 07/12/25 17:00 Pulse Rate 52 L Respiratory Rate 22 Blood Pressure 136/83 131/84 Pulse Oximetry 100 07/12/25 17:00 07/12/25 17:30 07/12/25 17:30 Pulse Rate 59 L 77 Respiratory Rate 18 16 Blood Pressure 129/80 Pulse Oximetry 100 100 07/12/25 18:01 07/12/25 18:01 07/12/25 18:30 Pulse Rate 73 89 Respiratory Rate 15 19 Blood Pressure 131/78 Pulse Oximetry 99 100 07/12/25 18:30 07/12/25 19:02 07/12/25 19:21 Pulse Rate 87 Respiratory Rate Blood Pressure 130/73 118/65 Pulse Oximetry 95 07/12/25 19:21 Pulse Rate 83 Respiratory Rate 16 Blood Pressure Pulse Oximetry 98 MDM - Abdominal Pain <Batsheva Dennis, DO - Last Filed: 07/13/25 07:05> Lab Data 07/12/25 15:49 07/12/25 15:49 Labs: Lab Results 07/12/25 07/12/25 Range/Units 15:49 17:50 WBC 8.5 (4.5-11.0) X10^3/uL RBC 5.87 (4.5-5.9) X10^6/uL Hgb 17.4 (13.5-17.5) g/dL Hct 50.2 (41-53) % MCV 85.6 (80-100) fL MCH 29.6 (26-34) PG MCHC 34.6 (30-36) % RDW 13.4 (11.6-14.8) % Plt Count 291 (150-400) X10^3/uL Neut % (Auto) 84.2 H (50-75) % Lymph % (Auto) 11.2 L (25-40) % Grady % (Auto) 3.7 (3-14) % Eos % (Auto) 0.4 L (2-4) % Baso % (Auto) 0.5 (0-2) % Neut # (Auto) 7200 H (7417-9298) /uL Lymph # (Auto) 1000 L (4617-3088) /uL Grady # (Auto) 300 (0-900) /uL Eos # (Auto) 0 (0-450) /uL Baso # (Auto) 0 (0-100) /uL Sodium 138 (137-145) mmol/L Potassium 3.7 (3.4-5.1) mmol/L Chloride 98 (98-107) mmol/L Carbon Dioxide 24 (22-32) mmol/L BUN 16 (9-20) mg/dL Creatinine 1.02 (0.66-1.25) mg/dL Estimated GFR > 60 (>60) mL/min BUN/Creatinine Ratio 15.7 (6-22) Glucose 107 H (70-99) mg/dL Lactate 1.6 (0.7-2.1) mmol/L Calcium 9.9 (8.4-10.2) mg/dL Total Bilirubin 1.5 H (0.2-1.3) mg/dL AST 29 (17-59) IU/L ALT 19 (<50) IU/L Alkaline Phosphatase 63 (38-126) U/L Total Protein 9.6 H (6.3-8.2) g/dL Albumin 5.7 H (3.5-5.0) g/dL Globulin 3.9 (1.7-4.1) g/dL Albumin/Globulin Ratio 1.5 (1.0-2.8) Lipase 38 (23-300) U/L Urine RBC None seen (0-5/HPF) Urine WBC 0-1/hpf (0-5/HPF) Ur Squamous Epith Cells None seen (0-5/HPF) Amorphous Sediment 3+ Urine Bacteria Few (2-10) H (None) Ur Culture Indicated? Cult not indicated Vol Urine Centrifuged 10ml (spun) U Opiates 300ng/mL cut Negative (Negative) Ur Oxycodone Screen Negative (Negative) Urine Methadone Screen Negative (Negative) Ur Barbiturates Screen Negative (Negative) U Tricyclic Antidepress Negative (Negative) Ur Phencyclidine Scrn Negative (Negative) Ur Amphetamines Screen Negative (Negative) U Methamphetamines Scrn Negative (Negative) Ur MDMA Scrn (Ecstasy) Negative (Negative) U Benzodiazepines Scrn Negative (Negative) Urine Cocaine Screen Negative (Negative) U Marijuana (THC) Screen Positive H (Negative) Urine pH Normal (Normal) Urine Specific [place] Normal (Normal) Ur Creatinine Normal (Normal) Point of care testing: Urine Dip Bedside Urine Glucose Negative Bedside Urine Bilirubin - Negative Bedside Urine Ketone ++ 40 Urine Specific [place] 1.015 Bedside Urine Occult Blood - Negative Bedside Urine pH 6.5 Bedside Urine Protein +/- 15 Bedside Urine Urobilinogen - Negative Bedside Urine Nitrite - Negative Bedside Urine Leukocytes - Negative Esterase MDM Narrative Medical decision making narrative: Patient healthy 20-year-old male presenting today with 1 week of nausea vomiting. He has pretty severe epigastric pain but abdomen is soft and nondistended. Blood work has been reviewed No leukocytosis no anemia CMP shows no abnormal electrolytes no BLANCA glucose is 107 Bilirubin 1.5 AST ALT within normal limits lipase 30 Lactate 1.6 Patient received 2 L IV fluids Protonix and Zofran now feeling a little bit better. <Salazar Dexter MD - Last Filed: 07/13/25 00:34> Lab Data Labs: Lab Results 07/12/25 07/12/25 Range/Units 15:49 17:50 WBC 8.5 (4.5-11.0) X10^3/uL RBC 5.87 (4.5-5.9) X10^6/uL Hgb 17.4 (13.5-17.5) g/dL Hct 50.2 (41-53) % MCV 85.6 (80-100) fL MCH 29.6 (26-34) PG MCHC 34.6 (30-36) % RDW 13.4 (11.6-14.8) % Plt Count 291 (150-400) X10^3/uL Neut % (Auto) 84.2 H (50-75) % Lymph % (Auto) 11.2 L (25-40) % Grady % (Auto) 3.7 (3-14) % Eos % (Auto) 0.4 L (2-4) % Baso % (Auto) 0.5 (0-2) % Neut # (Auto) 7200 H (1858-4801) /uL Lymph # (Auto) 1000 L (7333-1500) /uL Grady # (Auto) 300 (0-900) /uL Eos # (Auto) 0 (0-450) /uL Baso # (Auto) 0 (0-100) /uL Sodium 138 (137-145) mmol/L Potassium 3.7 (3.4-5.1) mmol/L Chloride 98 (98-107) mmol/L Carbon Dioxide 24 (22-32) mmol/L BUN 16 (9-20) mg/dL Creatinine 1.02 (0.66-1.25) mg/dL Estimated GFR > 60 (>60) mL/min BUN/Creatinine Ratio 15.7 (6-22) Glucose 107 H (70-99) mg/dL Lactate 1.6 (0.7-2.1) mmol/L Calcium 9.9 (8.4-10.2) mg/dL Total Bilirubin 1.5 H (0.2-1.3) mg/dL AST 29 (17-59) IU/L ALT 19 (<50) IU/L Alkaline Phosphatase 63 (38-126) U/L Total Protein 9.6 H (6.3-8.2) g/dL Albumin 5.7 H (3.5-5.0) g/dL Globulin 3.9 (1.7-4.1) g/dL Albumin/Globulin Ratio 1.5 (1.0-2.8) Lipase 38 (23-300) U/L Urine RBC None seen (0-5/HPF) Urine WBC 0-1/hpf (0-5/HPF) Ur Squamous Epith Cells None seen (0-5/HPF) Amorphous Sediment 3+ Urine Bacteria Few (2-10) H (None) Ur Culture Indicated? Cult not indicated Vol Urine Centrifuged 10ml (spun) U Opiates 300ng/mL cut Negative (Negative) Ur Oxycodone Screen Negative (Negative) Urine Methadone Screen Negative (Negative) Ur Barbiturates Screen Negative (Negative) U Tricyclic Antidepress Negative (Negative) Ur Phencyclidine Scrn Negative (Negative) Ur Amphetamines Screen Negative (Negative) U Methamphetamines Scrn Negative (Negative) Ur MDMA Scrn (Ecstasy) Negative (Negative) U Benzodiazepines Scrn Negative (Negative) Urine Cocaine Screen Negative (Negative) U Marijuana (THC) Screen Positive H (Negative) Urine pH Normal (Normal) Urine Specific [place] Normal (Normal) Ur Creatinine Normal (Normal) Point of care testing: Urine Dip Bedside Urine Glucose Negative Bedside Urine Bilirubin - Negative Bedside Urine Ketone ++ 40 Urine Specific [place] 1.015 Bedside Urine Occult Blood - Negative Bedside Urine pH 6.5 Bedside Urine Protein +/- 15 Bedside Urine Urobilinogen - Negative Bedside Urine Nitrite - Negative Bedside Urine Leukocytes - Negative Esterase Imaging Data CT scan - abdomen/pelvis: Radiologist's Impression: [address] [address] [address] Scan Report Signed Patient: Anthony Salmon MR#: [id number] : 2005 Acct:[id number] Age/Sex: 20 / M Date of Service: 07/12/25 Loc: ED Accession Number: [id number] Procedure: CT abdomen pelvis w con Ordering Provider: Batsheva Collins D.O. PROCEDURE: CT ABDOMEN PELVIS W CON INDICATIONS: nogoing pain and vomiting TECHNIQUE: After the administration of intravenous contrast, axial sections acquired from the lung bases to the pubic symphysis. Coronal and sagittal reformats were performed. For radiation dose reduction, the following was used: automated exposure control, adjustment of mA and/or kV according to patient size. COMPARISON: [facility], CT, CT ABDOMEN PELVIS W CON, 11/17/2024, 22:37. FINDINGS: Image quality: Diagnostic. Lower Chest: No significant findings. ABDOMEN: Liver: No solid mass. Gallbladder: No radiopaque gallstones or wall thickening. Biliary ducts: No biliary dilation. Pancreas: No ductal dilation. Spleen: Size is within normal limits. Adrenal Glands: No adrenal nodules. Kidneys and Ureters: No hydronephrosis. No solid mass. No complex renal cystic lesion which requires follow up. Stomach and Bowel: Normal colonic caliber, without significant wall thickening. Peritoneum: No abnormal intraperitoneal fluid. No free air. Ventral Wall: No significant ventral hernia. Abdominal Nodes: No retroperitoneal or mesenteric adenopathy by size criteria. Vessels: Aorta and inferior vena cava are normal in size. PELVIS: Pelvic Organs: Unremarkable. Bladder: No bladder wall thickening, accounting for underdistention. Pelvic Nodes: No enlarged lymph nodes. Miscellaneous: No inguinal hernias are seen. Bones: No aggressive osseous abnormality. IMPRESSION: Unremarkable CT abdomen and pelvis Approved by: Dipak Loera M.D. on 07/12/2025 at 17:56 MDM Narrative Medical decision making narrative: Patient healthy 20-year-old male presenting today with 1 week of nausea vomiting. He has pretty severe epigastric pain but abdomen is soft and nondistended. Blood work has been reviewed No leukocytosis no anemia CMP shows no abnormal electrolytes no BLANCA glucose is 107 Bilirubin 1.5 AST ALT within normal limits lipase 30 Lactate 1.6 Patient received 2 L IV fluids Protonix and Zofran now feeling a little bit better. 07/12/25, Isacc Chopra. Sign-out from Dr. Collins. CT abdomen and pelvis results pending. 20-year-old male with history of cannabis use, denied history of known cyclic vomiting syndrome, nondiabetic, has one-week duration of intermittent nausea and nonbloody vomiting, epigastric discomfort, afebrile, sirs screen negative. White blood cell count not elevated, hemoglobin normal, total bilirubin 1.5, normal other liver functions, lipase not elevated, lactate normal, urinalysis negative, UDS positive for cannabis otherwise negative. CT abdomen abdomen and pelvis ordered, to be performed. IV fluids ordered, additional IV fluid ordered. Assumed care. CT abdomen and pelvis showed no acute changes. See radiology report. CT report findings discussed with the patient, who feels improved. Given home pack ODT ondansetron to use if needed for further control nausea and vomiting. Advised symptoms might be related to his cannabis use, discussed cannabis vomiting syndrome. Consider trial of [id number] antacid. Recheck advised with PCP. Discharged home with girlfriend/significant other. Return precautions discussed. Discharge Plan Departure Patient Disposition: Home Clinical Impression: Nausea & vomiting, Abdominal pain Instructions: Nausea and Vomiting-Adult Activity Restrictions/Additional Instructions: Recurrent vomiting, central upper abdominal discomfort of unclear cause. Lab results unremarkable. CT abdomen and pelvis showed no acute changes. IV fluids given, IV antinausea medications given. Home pack of oral dissolvable ondansetron given to help control nausea if recurrent. Prescription for ODT ondansetron also sent for your preferred pharmacy to use if needed. You did report use of cannabis products, which can be associated with cyclic vomiting syndromes, consider weaning off of cannabis products if you have recurrence of nausea and vomiting that is otherwise unexplained. Consider trial of [id number] antacid such as famotidine/Pepcid or omeprazole/Prilosec, if acid related stomach esophageal symptoms are part of your symptom complex. Consider recheck with your regular doctor next week. Return earlier to this/nearest emergency department for any change worsening symptoms or any concerns prior. Prescriptions: New ondansetron 4 mg tablet,disintegrating 4 mg PO Q6H PRN (Reason: nausea and vomiting) Qty: 7 0RF Stand Alone Forms: Patient Portal/API
--- NOTE | 2025-07-12 17:17 | DI.CT.S_ITS ---
PROCEDURE: CT ABDOMEN PELVIS W CON INDICATIONS: nogoing pain and vomiting TECHNIQUE: After the administration of intravenous contrast, axial sections acquired from the lung bases to the pubic symphysis. Coronal and sagittal reformats were performed. For radiation dose reduction, the following was used: automated exposure control, adjustment of mA and/or kV according to patient size. COMPARISON: [facility], CT, CT ABDOMEN PELVIS W CON, 11/17/2024, 22:37. FINDINGS: Image quality: Diagnostic. Lower Chest: No significant findings. ABDOMEN: Liver: No solid mass. Gallbladder: No radiopaque gallstones or wall thickening. Biliary ducts: No biliary dilation. Pancreas: No ductal dilation. Spleen: Size is within normal limits. Adrenal Glands: No adrenal nodules. Kidneys and Ureters: No hydronephrosis. No solid mass. No complex renal cystic lesion which requires follow up. Stomach and Bowel: Normal colonic caliber, without significant wall thickening. Peritoneum: No abnormal intraperitoneal fluid. No free air. Ventral Wall: No significant ventral hernia. Abdominal Nodes: No retroperitoneal or mesenteric adenopathy by size criteria. Vessels: Aorta and inferior vena cava are normal in size. PELVIS: Pelvic Organs: Unremarkable. Bladder: No bladder wall thickening, accounting for underdistention. Pelvic Nodes: No enlarged lymph nodes. Miscellaneous: No inguinal hernias are seen. Bones: No aggressive osseous abnormality. IMPRESSION: Unremarkable CT abdomen and pelvis Approved by: Dipak Loera M.D. on 07/12/2025 at 17:56
[2025-07-12] MEDS: KETOROLAC 30 MG/ML VIAL 15 MG IV (17:24)
[2025-07-12 18:12] LABS: Ur Specific Gravity Normal (Normal)
[2025-07-12 18:13] LABS: UR Morphine/Opiate cutoff 300 Negative (Negative); Urine MDMA Negative (Negative); Urine Methamphetamines Negative (Negative); Urine Tetrahydrocannabinol Positive (Negative); Urine Tricyclic Antidepressant Negative (Negative)
[2025-07-12 18:16] LABS: Culture Indicated Urine Cult Not Indicated
[2025-07-12] MEDS: ONDANSETRON 4 MG ODT PREPACK 1 BOTTLE MISC (19:21)
== END 2025-07-12 19:27 | disposition home or self-care (01) ==
PROVIDERS: Emergency Medicine; Emergency Provider Emergency Medicine
DX: R10.13 Epigastric pain (principal); R11.2 Nausea with vomiting, unspecified
CPT/HCPCS: 36415; 74177; 80053; 80305; 81003; 81015; 83605; 83690; 85025; 87086; 96361; 96374; 96375; 96376; 99284; J1885; J2405; J2470; J7030; Q9967